=== PATIENT | female | born 1955 | race Caucasian/White ===

== ENCOUNTER 2020-10-26 16:46 | Inpatient (IN) ==
--- NOTE | 2020-10-26 17:00 | Emergency Department Note ---
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 More than 16 hours since last known well per the patient's report and EMS report. Patient is unclear the exact timing of this yesterday evening but states she started to have increased weakness of her left leg and normally this is not weak. 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 Patient denies any headache or trauma or falls. Patient denies any chest pain, recent fever, or infectious symptoms. Patient denies any nausea or vomiting. Patient states her right arm and leg are functioning normally. EMS states there was concerns worsening left-sided facial droop as well. Patient states that she was able to eat okay today and Occupational Therapy came this afternoon and she thinks he may have overdone things and made things a bit worse. Patient is on baby aspirin but denies other blood thinners. Patient's daughter later arrives and states patient actually been having some hallucinations yesterday and today and not talking sense at times. Reports that the patient had some worsened weakness of her left leg last night and over this afternoon developed a bit of a left facial droop which was new. No trauma reported. No fevers reported. Did receive PT and OT this afternoon but the patient just seems different and thus EMS was called. REVIEW OF SYSTEMS: A total of 10 review of systems was obtained and negative except as stated above in the HPI. PAST MEDICAL HISTORY: As noted above MEDICATIONS: Reviewed home medication list SOCIAL HISTORY: Former smoker, lives at home at the [facility] PHYSICAL EXAM: GENERAL: alert and oriented in no acute distress on stretcher Head: normocephalic and atraumatic EYES: No injection, discharge or icterus. PERRL, EOMI. NECK: Trachea midline. Supple. ENT: Mucous membranes pink and moist. Pharynx without erythema or exudate. LUNGS: Airway patent. No retractions. Breath sounds clear with good air entry bilaterally. HEART: Regular rate and rhythm. No chest wall tenderness ABDOMEN: Soft and non-tender, without guarding or rebound. SKIN: Acyanotic, warm, dry, without rashes EXTREMITIES: Without swelling, tenderness or deformity NEUROLOGICAL: No aphasia. Left facial droop without significant slurred speech. Sensation to gross touch normal in extremities and face. Patient has full baseline paralysis of the left upper extremity. Weakness left greater than right but able to lift off the bed of the lower extremities. EK bpm normal sinus rhythm. No PVC or PAC. No acute ST segment elevation or depression appreciated. Normal QTC. CONTINUOUS CARDIAC MONITORING: was ordered and showed a heart rate of 82 bpm in normal sinus rhythm Patient's laboratory studies and imaging reviewed. Differential includes Infection, dehydration, metabolic abnormality, hypo/hyperglycemia, electrolyte disturbance, anemia, hypoxia, cardiac sources, intracerebral event, toxicologic, neurologic, as well as other pathologies. IMPRESSION/MEDICAL DECISION MAKING: Patient presents via EMS reports of some new left weakness of the leg and some left facial droop starting last night initially. No trauma reported. Patient is alert and answers questions as not necessarily the best historian. Some reported increased weakness of the left leg is noted as well as a left facial droop. Patient initially stated this all started last night (thus not made a stroke alert) but the daughter states the facial droop started several hours prior to arrival when EMS was called. I long discussion with him regarding TPA however given the questionable history and onset timing in shared decision- making do not feel she is a candidate for consideration of TPA at this time based on the risks and benefits. CT of the head without acute intracranial bleed. She does have large stroke deficit from previous injury. Depakote level is therapeutic which she reportedly takes for migraines. Covid testing was negative. No significant leukocytosis or anemia is noted on blood work. Basic electrolytes without significant abnormality. Troponin is not elevated. Urinalysis is pending to see if possible infection is relating to her hallucinations and symptoms today causing possible recrudescence versus new stroke. CT and CTA of the head and neck with near complete occlusion of the right internal carotid artery likely chronic with some diminished caliber of the right MCA. Chest x-ray is clear although the patient seems to be borderline on room air and has been placed on 2 L. Discussed with patient and daughter at bedside findings of testing and imaging. Believe given the patient's change in neurological deficit is need additional evaluation here as an inpatient and they agree. Could possibly infectious versus stroke as cause of symptoms. Again discussed with patient and her daughter risks associated with TPA and they agree they do not want to pursue this at this time which I believe is reasonable given the mixed picture here. Discussed with the hospitalist for further inpatient evaluation. DIAGNOSIS: Left-sided weakness, left facial droop, hallucinations DISPOSITION: Hospitalist will evaluate Patient was agreeable with this plan. Past Med/Surg History Social History Smoking Status: Unknown if ever smoked Hx Alcohol Use: No Hx Substance Use: No Beliefs That Will Affect Care: None Current Living Situation: Family Other Information That Helps Us Care for You: No Feels Safe at Home: Yes Safety Concerns: Feels Safe At This Time Allergies Allergies Allergy/AdvReac Type Severity Reaction Status Date / Time No Known Allergies Allergy Unverified 10/26/20 18:14 Home Meds Home Medications Medication Instructions Recorded Confirmed albuterol sulfate [Ventolin HFA] 2 puff INHALATION 6XD PRN 10/26/20 10/26/20 aspirin [Aspir-Low] 81 mg PO DAILY 10/26/20 10/26/20 atorvastatin 40 mg PO QPM 10/26/20 10/26/20 divalproex [Depakote] 1,000 mg PO .10PM 10/26/20 10/26/20 duloxetine 30 mg PO .9PM 10/26/20 10/26/20 famotidine 20 mg PO .9AM 10/26/20 10/26/20 gabapentin 300 mg PO TID 10/26/20 10/26/20 lisinopril-hydrochlorothiazide 1 tab PO QAM 10/26/20 10/26/20 nystatin [Nyamyc] 1 applic TOPICAL TID 10/26/20 10/26/20 omeprazole 40 mg PO QAM 10/26/20 10/26/20 ondansetron HCl 4 mg PO Q8H PRN 10/26/20 10/26/20 Results & Data (ED) Vital Signs Vital Signs - 24 hr 10/26/20 17:06 10/26/20 17:39 10/26/20 18:33 Temperature 36.8 C Temperature Source Oral Pulse Rate 75 Pulse Rate [Right Finger] 75 96 H Respiratory Rate 15 15 16 Respiratory Effort / Characteristics Non-Labored Respiratory Depth Normal Blood Pressure 111/85 Blood Pressure [Right Arm] 119/82 107/66 Blood Pressure Mean 93 Blood Pressure Mean [Right Arm] 94 79 Pulse Oximetry 93 96 95 Oxygen Delivery Method Room Air Room Air Nasal Cannula Oxygen Flow Rate 2 Sepsis Recent Fever Within 48 Hours No Sepsis New/Unexplained Change in Mental Status N/A Sepsis Action Taken by Nursing No Action Required 10/26/20 20:05 Temperature Temperature Source Pulse Rate Pulse Rate [Right Finger] 62 Respiratory Rate 15 Respiratory Effort / Characteristics Respiratory Depth Blood Pressure Blood Pressure [Right Arm] 126/66 Blood Pressure Mean Blood Pressure Mean [Right Arm] 86 Pulse Oximetry 95 Oxygen Delivery Method Oxygen Flow Rate Sepsis Recent Fever Within 48 Hours Sepsis New/Unexplained Change in Mental Status Sepsis Action Taken by Nursing Laboratory Data Result diagrams: 10/26/20 16:57 10/26/20 16:57 Lab Results 10/26/20 10/26/20 10/26/20 Range/Units 16:57 16:57 16:57 WBC 9.48 (4.8-10.8) K/uL RBC 4.22 (4.2-5.4) M/uL Hgb 13.4 (12.0-16.0) g/dL Hct 40.4 (37-47) % MCV 95.7 (80-100) fL MCH 31.8 (25-34) pg MCHC 33.2 (32-36) g/dL RDW Std Deviation 50.2 H (36.4-46.3) fL RDW Coeff of Parviz 14.2 (11.5-14.5) % Plt Count 185 (130-400) K/uL MPV 10.5 H (7.4-10.4) fL Immature Gran % (Auto) 0.2 % Neut % (Auto) 63.3 % Lymph % (Auto) 20.3 % [place] % (Auto) 11.0 % Eos % (Auto) 4.9 % Baso % (Auto) 0.3 % Neut # (Auto) 6.01 (1.4-6.5) K/uL Lymph # (Auto) 1.92 (1.2-3.4) K/uL [place] # (Auto) 1.04 H (0.11-0.59) K/uL Eos # (Auto) 0.46 (0-0.5) K/uL Baso # (Auto) 0.03 (0-0.2) K/uL Immature Gran # (Auto) 0.02 (0.00-0.02) K/uL PT 10.5 (9.0-12.0) Seconds INR 1.0 (0.9-1.1) APTT 24.5 (21.0-31.0) Seconds PTT Ratio 0.9 Sodium 136 (136-145) mmol/L Potassium 4.0 (3.5-5.1) mmol/L Chloride 102 (98-107) mmol/L Carbon Dioxide 29 (21-32) mmol/L Anion Gap 6.0 (3-11) BUN 23 H (7-18) mg/dl Creatinine 1.09 (0.6-1.2) mg/dl Est Cr Clr Drug Dosing 54.7 ml/min Est GFR ( Amer) 60.8 Est GFR (Non-Af Amer) 52.5 BUN/Creatinine Ratio 21.2 H (10-20) Glucose 103 H (70-99) mg/dl Calcium 9.2 (8.5-10.1) mg/dl Magnesium 2.0 (1.8-2.4) mg/dl Total Bilirubin 0.4 (0.2-1) mg/dl AST 35 (15-37) U/L ALT 24 (12-78) U/L Alkaline Phosphatase 79 (45-117) U/L Troponin I < 0.015 (0-0.045) ng/ml Total Protein 8.3 H (6.4-8.2) gm/dl Albumin 3.2 L (3.4-5.0) gm/dl Globulin 5.1 H (2.5-4.0) gm/dl Albumin/Globulin Ratio 0.6 L (0.9-2) Valproic Acid (50-100) mcg/ml COVID-19 Eval Order Hepatitis C Ab Screen (Neg) SARS-CoV-2, RNA, NAAT (NEGATIVE) 10/26/20 10/26/20 10/26/20 Range/Units 16:57 16:57 17:37 WBC (4.8-10.8) K/uL RBC (4.2-5.4) M/uL Hgb (12.0-16.0) g/dL Hct (37-47) % MCV (80-100) fL MCH (25-34) pg MCHC (32-36) g/dL RDW Std Deviation (36.4-46.3) fL RDW Coeff of Parviz (11.5-14.5) % Plt Count (130-400) K/uL MPV (7.4-10.4) fL Immature Gran % (Auto) % Neut % (Auto) % Lymph % (Auto) % [place] % (Auto) % Eos % (Auto) % Baso % (Auto) % Neut # (Auto) (1.4-6.5) K/uL Lymph # (Auto) (1.2-3.4) K/uL [place] # (Auto) (0.11-0.59) K/uL Eos # (Auto) (0-0.5) K/uL Baso # (Auto) (0-0.2) K/uL Immature Gran # (Auto) (0.00-0.02) K/uL PT (9.0-12.0) Seconds INR (0.9-1.1) APTT (21.0-31.0) Seconds PTT Ratio Sodium (136-145) mmol/L Potassium (3.5-5.1) mmol/L Chloride (98-107) mmol/L Carbon Dioxide (21-32) mmol/L Anion Gap (3-11) BUN (7-18) mg/dl Creatinine (0.6-1.2) mg/dl Est Cr Clr Drug Dosing ml/min Est GFR ( Amer) Est GFR (Non-Af Amer) BUN/Creatinine Ratio (10-20) Glucose (70-99) mg/dl Calcium (8.5-10.1) mg/dl Magnesium (1.8-2.4) mg/dl Total Bilirubin (0.2-1) mg/dl AST (15-37) U/L ALT (12-78) U/L Alkaline Phosphatase (45-117) U/L Troponin I (0-0.045) ng/ml Total Protein (6.4-8.2) gm/dl Albumin (3.4-5.0) gm/dl Globulin (2.5-4.0) gm/dl Albumin/Globulin Ratio (0.9-2) Valproic Acid 81 (50-100) mcg/ml COVID-19 Eval [email or web address] C Ab Screen Pos A (Neg) SARS-CoV-2, RNA, NAAT (NEGATIVE) 10/26/20 Range/Units 17:37 WBC (4.8-10.8) K/uL RBC (4.2-5.4) M/uL Hgb (12.0-16.0) g/dL Hct (37-47) % MCV (80-100) fL MCH (25-34) pg MCHC (32-36) g/dL RDW Std Deviation (36.4-46.3) fL RDW Coeff of Parviz (11.5-14.5) % Plt Count (130-400) K/uL MPV (7.4-10.4) fL Immature Gran % (Auto) % Neut % (Auto) % Lymph % (Auto) % [place] % (Auto) % Eos % (Auto) % Baso % (Auto) % Neut # (Auto) (1.4-6.5) K/uL Lymph # (Auto) (1.2-3.4) K/uL [place] # (Auto) (0.11-0.59) K/uL Eos # (Auto) (0-0.5) K/uL Baso # (Auto) (0-0.2) K/uL Immature Gran # (Auto) (0.00-0.02) K/uL PT (9.0-12.0) Seconds INR (0.9-1.1) APTT (21.0-31.0) Seconds PTT Ratio Sodium (136-145) mmol/L Potassium (3.5-5.1) mmol/L Chloride (98-107) mmol/L Carbon Dioxide (21-32) mmol/L Anion Gap (3-11) BUN (7-18) mg/dl Creatinine (0.6-1.2) mg/dl Est Cr Clr Drug Dosing ml/min Est GFR ( Amer) Est GFR (Non-Af Amer) BUN/Creatinine Ratio (10-20) Glucose (70-99) mg/dl Calcium (8.5-10.1) mg/dl Magnesium (1.8-2.4) mg/dl Total Bilirubin (0.2-1) mg/dl AST (15-37) U/L ALT (12-78) U/L Alkaline Phosphatase (45-117) U/L Troponin I (0-0.045) ng/ml Total Protein (6.4-8.2) gm/dl Albumin (3.4-5.0) gm/dl Globulin (2.5-4.0) gm/dl Albumin/Globulin Ratio (0.9-2) Valproic Acid (50-100) mcg/ml COVID-19 Eval Order Hepatitis C Ab Screen (Neg) SARS-CoV-2, RNA, NAAT NEGATIVE (NEGATIVE) Administered Medications Atorvastatin Calcium (Atorvastatin 40 Mg Tab) 40 mg PO QPM SARAH Stop: 11/25/20 21:59 Last Admin: 10/26/20 22:35 Dose: 40 mg Documented by: [id number] Divalproex Sodium (Divalproex Delay Release 500 Mg Tab) 1,000 mg PO DAILY@2200 SARAH Stop: 11/25/20 21:59 Last Admin: 10/26/20 22:36 Dose: 1,000 mg Documented by: [id number] Gabapentin (Gabapentin 300 Mg Cap) 300 mg PO TID SARAH Stop: 11/25/20 21:59 Last Admin: 10/26/20 22:35 Dose: 300 mg Documented by: [id number] Sodium Chloride (Nss 1000ml) 1,000 mls @ 80 mls/hr IV .[id number] SARAH Stop: 11/25/20 21:15 Last Admin: 10/26/20 21:58 Dose: 80 mls/hr Documented by: [id number] Nystatin (Nystatin Powder 15gm Btl) 1 appln EXT TID SARAH Stop: 11/25/20 21:59 Last Admin: 10/26/20 22:34 Dose: 1 appln Documented by: [id number] Discontinued Medications Clopidogrel Bisulfate (Clopidogrel Bisulfate 75 Mg Tab) 75 mg PO NOW ONE Stop: 10/26/20 20:17 Last Admin: 10/26/20 20:37 Dose: 75 mg Documented by: [id number] Ioversol (Optiray 320 125ml) 120 ml IV ONCE ONE Stop: 10/26/20 18:13 Last Admin: 10/26/20 18:12 Dose: 120 ml Documented by: [id number] Discharge Plan Visit Data Chief Complaint: Stroke/CVA Symptoms Stated Complaint: STROKE SX ED Provider: Kale Coates Discharge Problem: Acute left-sided weakness, Facial droop, Hallucinations Patient Disposition: Admitted As Inpatient Discharge Instructions Interventions: ED Discharge Assessment Last Done: 10/26/20 20:42
[2020-10-26 17:11] LABS: Basophils # (auto) 0.03 K/uL (0-0.2); Basophils % (auto) 0.3 %; Eosinophils # (auto) 0.46 K/uL (0-0.5); Eosinophils % (auto) 4.9 %; Hematocrit (blood only) 40.4 % (37-47); Hemoglobin 13.4 g/dL (12.0-16.0); Immature Granulocytes # (auto) 0.02 K/uL (0.00-0.02); Immature Granulocytes % (auto) 0.2 %; Lymphocytes # (auto) 1.92 K/uL (1.2-3.4); Lymphocytes % (auto) 20.3 %; Mean Corpuscular Hemoglobin 31.8 pg (25-34); Mean Corpuscular Hgb Conc 33.2 g/dL (32-36); Mean Corpuscular Volume 95.7 fL (80-100); Mean Platelet Volume 10.5 fL (7.4-10.4); Monocytes # (auto) 1.04 K/uL (0.11-0.59); Neutrophils # (auto) 6.01 K/uL (1.4-6.5); Neutrophils % (auto) 63.3 %; Platelet Count 185 K/uL (130-400); RDW Coefficient of Variation 14.2 % (11.5-14.5); RDW Standard Deviation 50.2 fL (36.4-46.3); Red Blood Count 4.22 M/uL (4.2-5.4); White Blood Count 9.48 K/uL (4.8-10.8)
[2020-10-26 17:24] LABS: Partial Thromboplastin Ratio 0.9; Partial Thromboplastin Time 24.5 Seconds (21.0-31.0); Prothrombin Time 10.5 Seconds (9.0-12.0)
--- NOTE | 2020-10-26 17:28 | XRay Report ---
SINGLE VIEW CHEST CLINICAL HISTORY: Strokelike symptoms. FINDINGS: An AP, portable, upright chest radiograph is obtained. No prior studies are available for c omparison at the time of dictation. The examination is degraded by portable technique and patient rot ation. The cardiomediastinal silhouette is unremarkable noting atherosclerotic calcification of the thoracic aorta. There is mild bibasilar scarring/atelectasis. No airspace consolidation or large pleu ral effusion is identified. No pneumothorax is seen. The skeletal structures are osteopenic. The bony thorax is grossly intact. There is atherosclerotic calcification of the carotid bulbs. IMPRESSION: No active disease in the chest. ACT 112: Negative or not required by law. Electronically signed by: Carrillo Gomez M.D. 10/26/2020 5:26 PM
[2020-10-26 17:37] LABS: Alanine Aminotransferase 24 U/L (12-78); Albumin Level 3.2 gm/dl (3.4-5.0); Aspartate Aminotransferase 35 U/L (15-37); BUN Creatinine Ratio 21.2 (10-20); Blood Urea Nitrogen 23 mg/dl (7-18); Calcium 9.2 mg/dl (8.5-10.1); Carbon Dioxide 29 mmol/L (21-32); Chloride 102 mmol/L (98-107); Creatinine Clr Calc Pharmacy 54.7 ml/min; Est GFR (African American) 60.8; Est GFR (Non-African American) 52.5; Glucose 103 mg/dl (70-99); Sodium 136 mmol/L (136-145)
[2020-10-26 17:42] LABS: Albumin Globulin Ratio 0.6 (0.9-2); Alkaline Phosphatase 79 U/L (45-117); Bilirubin,Total 0.4 mg/dl (0.2-1); Globulin 5.1 gm/dl (2.5-4.0); Total Protein 8.3 gm/dl (6.4-8.2); Troponin I < 0.015 ng/ml (0-0.045)
[2020-10-26] MEDS ORDERED: OPTIRAY 320 125ml IV ONE (18:12)
--- NOTE | 2020-10-26 18:17 | CT Scan Report ---
UNENHANCED CT OF THE BRAIN; CT ANGIOGRAM OF THE BRAIN; CT ANGIOGRAM OF THE NECK CLINICAL HISTORY: Strokelike symptoms. Left lower extremity weakness. COMPARISON STUDY: No priors. TECHNIQUE: Unenhanced axial CT scan of the brain is performed. Subsequently, following the IV adminis tration of 120 of Optiray 320, CT angiogram of the head and neck was performed from the aortic arch t o the vertex. Images are reviewed in the axial, sagittal, and coronal planes. 3-D MIPS images are cre ated and assessed. IV contrast was administered without complication. All measurements were calculate d based on NASCET criteria. A dose lowering technique was utilized adhering to the principles of ALA RA. CT DOSE: 1058.36 mGy.cm FINDINGS: Brain parenchyma: Encephalomalacia throughout the right MCA territory is consistent with a remote inf arct. There is mild microangiopathic disease. There is no hemorrhage, mass effect, or evidence of acu te territorial ischemia by CT criteria. There is no evidence of enhancing mass lesion on the angiogra m phase images. Wallerian degeneration is noted in the right aspect of the gene. The ventricles, sulc i, and cisterns are prominent secondary to involutional change. A chronic lacunar infarct is noted in the right aspect of the gene. Moreno-white matter differentiation is preserved. No extra-axial fluid c ollection is seen. Thoracic aorta: There is atherosclerotic calcification of the thoracic aorta. Visualized portions of the thoracic aorta are normal in caliber. The aortic arch demonstrates standard 3-vessel anatomy. Right carotid arterial system: The right common carotid artery is widely patent. There is high-grade stenosis at the origin of the right external carotid artery. The remainder of the right external palafox tid artery is widely patent. Advanced atherosclerotic plaque is seen in the right carotid bulb and th roughout the right internal carotid artery. There is a long segment of high-grade stenosis with near- complete occlusion/trace flow seen at the origin of the right internal carotid artery. This extends 1 .3 cm in length. The mid to distal right internal carotid artery is diminutive but patent. Left carotid arterial system: The left common carotid artery is widely patent, as are the left athletic training internship al and external carotid arteries. Calcified plaque is noted in the carotid bulb. Vertebral arteries: The vertebral arteries are patent bilaterally noting left-sided dominance. Subclavian arteries: Widely patent bilaterally. Intracranial vasculature: There is advanced atherosclerotic calcification an irregularity of the cave rnous carotid arteries. There is attenuated flow within the right internal carotid artery at the skul l base. Vessel remains patent. The left internal carotid artery is widely patent at the skull base, a s are the anterior cerebral arteries and the left middle cerebral artery. The right middle cerebral a rtery is patent, and slightly diminutive as compared to the left. The vertebrobasilar system and post erior cerebral arteries are widely patent. The left vertebral artery is dominant. There is no aneurys m or focal vessel cut off seen throughout the intracranial circulation. Jugular veins: Patent bilaterally. Dural sinuses: Patent. Lung apices: Emphysematous change is noted at the lung apices. Soft tissues: The visualized pharyngeal soft tissues are normal in appearance noting angiographic pha se technique. The oropharyngeal airway appears widely patent. A 6 mm low-attenuation nodule is noted in the left lobe of the thyroid. The salivary glands are normal in appearance. No cervical lymphadeno stella is seen. Skeletal structures: The skeletal structures are osteopenic. The calvarium appears intact. The cervic al spine is maintained noting mild multilevel spondylosis. No lytic or blastic lesion is seen. Orbits: The bony orbits are intact. Orbital contents are normal as visualized. Sinuses and mastoids: There is mild to moderate mucosal thickening within the right maxillary antrum. Trace mucosal thickening is seen in the left maxillary antrum. The remaining paranasal sinuses are c lear. There are small mastoid effusions. IMPRESSION: 1. There is no hemorrhage, mass effect, or evidence of acute territorial ischemia by CT criteria. 2. Encephalomalacia throughout the right MCA territory is consistent with a remote infarct. 3. There is a 1.3 cm segment of near-complete occlusion at the origin of the right internal carotid a rtery with only trace flow. 4. The mid to distal right internal carotid artery in the neck as well as the right internal carotid artery at the skull base is diminutive/attenuated but patent. This is likely chronic. 5. The left internal carotid artery and the vertebral arteries are patent. 6. The intracranial vessels are patent. The right MCA is slightly diminished in caliber as compared t o left. 7. Emphysema. 8. Additional findings as above. ACT 112: Negative or not required by law. Electronically signed by: Carrillo Gomez M.D. 10/26/2020 6:16 PM
[2020-10-26] MEDS ORDERED: CLOPIDOGREL BISULFATE 75 MG TAB PO ONE (20:16)
[2020-10-26] MEDS ORDERED: POLYETHYLENE (MIRALAX) 17 GM PACK PO PRN (21:16)
[2020-10-26] MEDS ORDERED: ONDANSETRON INJ 2 MG/ML 2 ML VIAL IV PRN (21:16)
[2020-10-26] MEDS ORDERED: ALBUTEROL HFA 8 GM INHALER INH PRN (21:16)
[2020-10-26] MEDS ORDERED: NITROGLYCERIN SL 0.4 MG/TAB TAB SL PRN (21:16)
[2020-10-26] MEDS ORDERED: PHARMACIST DISCHARGE MED REC CONSULT PRN (21:16)
[2020-10-26] MEDS ORDERED: ONDANSETRON 4 MG OD TAB PO PRN (21:26)
[2020-10-26] MEDS: SODIUM CHLORIDE 0.9% 1000ML 1,000 ML IV SCH (21:58)
[2020-10-26] MEDS: NYSTATIN POWDER 15GM BTL EXT SCH (22:34)
[2020-10-26] MEDS: ATORVASTATIN 40 MG TAB PO SCH (22:35)
[2020-10-26] MEDS: GABAPENTIN 300 MG CAP PO SCH (22:35)
[2020-10-26] MEDS: DIVALPROEX DELAY RELEASE 500 MG TAB PO SCH (22:36)
[2020-10-26] MEDS ORDERED: LORazepam 0.5 MG/1 ML VIAL IV STA (23:22)
--- NOTE | 2020-10-27 00:45 | History and Physical Report ---
DATE OF ADMISSION: 10/26/2020 CHIEF COMPLAINT: Stroke-like symptoms. HISTORY OF PRESENT ILLNESS: A 65-year-old female with past medical history significant for hyperlipidemia, prediabetes, COPD, hypertension, GERD, depression, history of CVA in January of 2020 with left-sided weakness and bedbound since then, nonambulatory status. Currently moved close to stay with her daughter, daughter helps her. Was brought in because of stroke-like symptoms. Since yesterday night, the patient has felt a little bit more weakness in her left leg than usual and also some mild left-sided facial droop. As per daughter, she was also hallucinating last night. That is the reason she was brought in here. Imaging studies, Ct head and CTA of the head and neck were done in the ER, no acute findings seen. The patient is alert and oriented. Speech is clear. Questionable mild facial droop. Answering questions appropriately and obeys simple commands. Can move a little bit, her left lower extremity, but cannot move her left upper extremity, that is from previous stroke. As per daughter, last night she also was choking on the food. Generally, she eats okay. Has chronic migraine headaches has headache now about 8/10 in severity . Always has blurred visions. No fever, no chills. Has some nausea, no vomiting, no abdominal pain, no diarrhea or constipation. She also complains of burning micturition. No chest pain, no shortness of breath, no abdominal pain. Currently, hemodynamics are stable. ALLERGIES: No known drug allergies. PAST MEDICAL HISTORY: As mentioned above. PAST SURGICAL HISTORY: Lumbar diskectomy. MEDICATIONS: The patient is on albuterol 2 puffs p.r.n., aspirin 81 mg p.o. daily, atorvastatin 40 mg p.o. p.m., Depakote 1000 mg p.o. p.m., duloxetine 30 mg p.o. p.m., famotidine 20 mg p.o. a.m., gabapentin 300 mg p.o. daily, lisinopril and hydrochlorothiazide 20/25 mg 1 tablet p.o. daily, nystatin topical t.i.d., omeprazole 40 mg p.o. daily, Zofran 4 mg p.o. q. 8 hours p.r.n. FAMILY HISTORY: Significant for no family history on file. SOCIAL HISTORY: Former smoker. Alcohol rarely. No drug use. REVIEW OF SYSTEMS: As per HPI. Rest of the review of systems negative. PHYSICAL EXAMINATION: GENERAL: The patient is alert and oriented, not in acute distress. VITAL SIGNS: Temperature 36.8, pulse 63, respiratory rate 16, blood pressure 110/64, oxygen 96% on 2 L. HEENT: Pupils equal, round, and reactive to light. Oral mucosa moist. Tongue midline. No obvious facial droop seen. NECK: No JVD, no neck masses. CARDIOVASCULAR: S1, S2 heard. Regular rate and rhythm, no murmur, no gallop. RESPIRATORY SYSTEM: Normal AP diameter. No accessory muscle use. No wheezing, no crackles. ABDOMEN: Soft, bowel sounds present, nontender. No distention. CENTRAL NERVOUS SYSTEM: Alert and oriented. Obeys simple commands. Power 5/5 in right extremity, power 1/5 and left lower extremity and 0/5 in left upper extremity. Position sense intact. EXTREMITIES: No edema, no erythema. LABORATORY DATA: WBC 9.4, hemoglobin 13.4, hematocrit 40.4, platelets 185. PT 10.5, INR 1, APTT 24.5. Sodium 136, potassium 4, chloride 102, bicarbonate 29, BUN 23, creatinine 1.09, serum glucose 103, calcium 9.2, magnesium 2, total bilirubin 0.4, AST 35, ALT 24, alkaline phosphatase 110, troponin I less than 0.015. Valproic acid 81. SARS-CoV-2 RNA negative. IMAGING DATA: Chest x-ray, no active disease in the chest. CT of the head, no hemorrhage or mass effect. Encephalomalacia throughout the right MCA territory consistent with remote infarct. A 1.3 cm segment of near complete occlusion of the origin of the right internal carotid artery with only trace flow. Mid to distal right internal carotid artery in the neck as well as right internal carotid artery at the skull base, diminutive. Left carotid artery and the vertebral arteries are patent. Intracranial vessels are patent. The right MCA is slightly diminished in caliber as compared to the left . Chest x-ray, no active disease in the chest. EKG: Normal sinus rhythm at a rate of 69, no previous ECGs available. ASSESSMENT AND PLAN: This is a 65-year-old female who presents with stroke-like symptoms. 1. Stroke-like symptoms: History of right MCA stroke with left-sided weakness since January, bedbound as per the daughter since then. Since last night, she is having more weakness in the left lower extremity and has some questionable facial droop and hallucinations and some dysphagia. Initial workup reveals no acute findings. We will admit her to tele floor. We will do stroke workup with MRI scans, echocardiogram, speech evaluation. Neurology consulted. Also vascular surgery consult for right carotid artery stenosis. We will keep n.p.o. except medications and gentle fluids and closely monitor in the tele floor.Patient is already on aspirin. We will continue aspirin, and also start on Plavix for now and continue her home statin. Follow the lipid profile and HbA1c levels. 2. Hypertension: We will hold her lisinopril and hydrochlorothiazide. We will allow for permissive hypertension until MRI scan is back. Will monitor the blood pressure. 3. Gastroesophageal reflux disease: Continue omeprazole. 4. Hyperlipidemia: Continue statin. 5. History of depression: Continue her duloxetine. 6. History of migraines: Continue her Depakote. 7. Chronic obstructive pulmonary disease: Currently stable. Continue her inhaler p.r.n. 8. History of prediabetes: Follow HbA1c levels, follow the blood sugars. 9. Burning micturition. Follow UA. 10. Deep venous thrombosis prophylaxis: Sequential compression devices for now. 11. Disposition: Admit to tele floor. Expect to discharge back home if stable. Social service to help with discharge planning. Level 1 full code as per the discussion with the patient. PAL
[2020-10-27] MEDS: LIDOCAINE 5% 1 PATCH TD SCH ×2 (01:11→20:30)
[2020-10-27 07:56] LABS: BUN Creatinine Ratio 19.1 (10-20); Calcium 9.6 mg/dl (8.5-10.1); Creatinine Clr Calc Pharmacy 65.5 ml/min; Est GFR (African American) 75.7; Est GFR (Non-African American) 65.3; Potassium 4.1 mmol/L (3.5-5.1)
[2020-10-27] MEDS: FAMOTIDINE 20 MG TAB PO SCH (07:56)
[2020-10-27] MEDS: CLOPIDOGREL BISULFATE 75 MG TAB PO SCH (07:56)
[2020-10-27] MEDS: GABAPENTIN 300 MG CAP PO SCH ×2 (07:56→14:33)
[2020-10-27] MEDS: DULoxetine HCL 30 MG CAP PO SCH (07:56)
[2020-10-27] MEDS: PANTOprazole 40 MG TAB PO SCH (07:56)
[2020-10-27] MEDS: ASPIRIN 81 MG ECTAB PO SCH (07:57)
[2020-10-27] MEDS: NYSTATIN POWDER 15GM BTL EXT SCH ×3 (07:58→20:31)
--- NOTE | 2020-10-27 08:03 | Magnetic Resonance Report ---
MRI OF THE BRAIN WITHOUT CONTRAST CLINICAL HISTORY: Stroke-like symptoms. COMPARISON STUDY: Head CT and CTA of the head October 26, 2020. TECHNIQUE: Utilizing a 1.5 Emi magnet and dedicated coil, multiplanar, multiecho imaging of the bra in was performed without IV contrast. FINDINGS: There are no foci of restricted diffusion to suggest acute infarct. No acute intracranial h emorrhage, midline shift or mass effect is present. Note is made of multifocal encephalomalacia withi n the right middle cerebral artery distribution consistent with old infarct. An adjacent T2 hyperinte nsity is noted. These findings are chronic. Associated wallerian degeneration and mild asymmetric dil atation of the right lateral ventricle is noted. Basal cisterns are patent. There are no extra-axial collections no intracranial masses identified on this unenhanced examination. No foci of susceptibili ty artifact are identified on the gradient echo sequence. Calvarial signal is normal. There is mild t o moderate mucosal thickening of the right maxillary sinus. There is trace fluid within the bilateral mastoid air cells. IMPRESSION: 1. No acute intracranial findings. 2. Old right middle cerebral artery territory infarcts. ACT 112: Negative or not required by law. Electronically signed by: Barak Clark M.D. 10/27/2020 8:01 AM
[2020-10-27 08:24] LABS: Basophils # (auto) 0.04 K/uL (0-0.2); Basophils % (auto) 0.6 %; Eosinophils # (auto) 0.57 K/uL (0-0.5); Eosinophils % (auto) 8.1 %; Hematocrit (blood only) 44.1 % (37-47); Hemoglobin 14.4 g/dL (12.0-16.0); Immature Granulocytes # (auto) 0.01 K/uL (0.00-0.02); Immature Granulocytes % (auto) 0.1 %; Lymphocytes # (auto) 2.03 K/uL (1.2-3.4); Lymphocytes % (auto) 28.7 %; Mean Corpuscular Hemoglobin 31.6 pg (25-34); Mean Corpuscular Hgb Conc 32.7 g/dL (32-36); Mean Corpuscular Volume 96.9 fL (80-100); Mean Platelet Volume 10.5 fL (7.4-10.4); Monocytes # (auto) 0.99 K/uL (0.11-0.59); Neutrophils # (auto) 3.44 K/uL (1.4-6.5); Neutrophils % (auto) 48.5 %; Platelet Count 146 K/uL (130-400); RDW Coefficient of Variation 14.2 % (11.5-14.5); RDW Standard Deviation 50.8 fL (36.4-46.3); Red Blood Count 4.55 M/uL (4.2-5.4); White Blood Count 7.08 K/uL (4.8-10.8)
[2020-10-27] MEDS ORDERED: LISINOPRIL/HCTZ 20/25MG 1 TAB PO SCH (09:00)
[2020-10-27 10:03] LABS: Estimated Average Glucose 105 mg/dl; Hemoglobin A1C 5.3 % (4.5-5.6)
[2020-10-27] MEDS: SODIUM CHLORIDE 0.9% 1000ML 1,000 ML IV SCH (11:30)
[2020-10-27 12:54] LABS: Appearance Urine Clear (Clear); Bacteria Urine Automated 4+ (Negative); Bilirubin Urine Negative (Negative); Blood Urine Negative (Negative); Cast Urine Automated 0 /lpf (0-5); Color Urine Yellow; Glucose Urine UA Negative (Negative); Ketones Urine Negative (Negative); Leukocyte Esterase Urine 1+ (Negative); Nitrite Urine Positive (Negative); Protein Urine Negative (Negative); Specific Gravity Urine 1.022 (1.000-1.030); Urobilinogen Urine Negative (Negative); pH Urine 5.5 (4.5-7.5)
--- NOTE | 2020-10-27 13:13 | Hospitalist Progress Note ---
Date of Service October 27, 2020 Assessment & Plan (1) Stroke-like symptoms: Discussed with patient's daughter. She reports that patient noted to have increased left-sided weakness with worsening left facial droop arcelia night. Stated that her baseline patient is able to move the left leg a bit but worsened that night. CT head show encephalomalacia consistent with old stroke and no acute abnormalities MRI brain did not show any acute infarct CT angio head and neck does show near occlusion of the right ICA. This is likely chronic. Vascular surgeons evaluation appreciated Continue aspirin, Plavix and atorvastatin for now Appreciate neurology evaluation Daughter also reports that patient has been more forgetful Patient has had increased drowsiness since starting Cymbalta and gabapentin increased after last PCP visit on 10/05/2020. This was confirmed on [facility] review. We will continue Cymbalta for now and gabapentin reduced to previous dose of 100 mg 3 times daily Daughter also reported some choking episodes in the past to solid foods. Speech evaluation done and minced and moist diet recommended. (2) Hypertension: Continue to hold antihypertensives for now (3) GERD (gastroesophageal reflux disease): Continue omeprazole (4) History of depression: (5) Migraines: Continue Depakote and duloxetine. (6) DVT prophylaxis: Lovenox acute Admission and Anticipated Discharge Date Admission Date: October 26, 2020 Subjective Patient seen and examined. Patient was quite drowsy during evaluation, arousable but quickly falls back to sleep. According to RN, patient was wide awake, alert and oriented to person/place/time earlier but patient's daughter reports that patient usually sleeps quite deeply. Limited review of system due to drowsiness. Was able to follow simple commands such as squeeze my hands and open mouth Physical Exam Constitutional: + well hydrated; no acute distress Drowsy but arousable Eyes: PERRL, conjunctivae normal, anicteric sclerae ENMT: external ear and nose normal, oropharynx normal Respiratory: normal respiratory effort, lungs clear to auscultation Cardiovascular: Rate/Rhythm: regular rate and regular rhythm Heart Sounds: normal S1 and normal S2 Gastrointestinal (Abdomen): normal bowel sounds, soft, nontender, no hepa tosplenomegaly Musculoskeletal: No pedal edema Neurologic: Drowsy but arousable. Quickly falls back to sleep Follows simple commands such as open mouth, squeeze hand Paralysis of left UE with increased tone on passive ROM Limited assessment due to drowsiness Psychiatric: Somnolent Results & Data Results & Data ([facility]) Vital Signs (Past 12 Hours) Vital Signs Temp Pulse Pulse Resp BP Pulse Ox 10/27/20 11:30 36.8 C 55 L 18 93/47 L 96 10/27/20 08:00 55 L 10/27/20 07:38 36.2 C L 64 16 114/83 97 10/27/20 03:52 36.6 C 66 18 105/61 97 10/27/20 02:32 36.4 C L 60 15 99/62 L 96 10/27/20 02:07 63 Laboratory Results Laboratory Results - last 24 hr 10/26/20 10/26/20 10/26/20 16:57 16:57 16:57 WBC 9.48 RBC 4.22 Hgb 13.4 Hct 40.4 MCV 95.7 MCH 31.8 MCHC 33.2 RDW Std Deviation 50.2 H RDW Coeff of Parviz 14.2 Plt Count 185 MPV 10.5 H Immature Gran % (Auto) 0.2 Neut % (Auto) 63.3 Lymph % (Auto) 20.3 Kendall % (Auto) 11.0 Eos % (Auto) 4.9 Baso % (Auto) 0.3 Neut # (Auto) 6.01 Lymph # (Auto) 1.92 Kendall # (Auto) 1.04 H Eos # (Auto) 0.46 Baso # (Auto) 0.03 Immature Gran # (Auto) 0.02 PT 10.5 INR 1.0 APTT 24.5 PTT Ratio 0.9 Sodium 136 Potassium 4.0 Chloride 102 Carbon Dioxide 29 Anion Gap 6.0 BUN 23 H Creatinine 1.09 Est Cr Clr Drug Dosing 54.7 Est GFR ( Amer) 60.8 Est GFR (Non-Af Amer) 52.5 BUN/Creatinine Ratio 21.2 H Glucose 103 H Estimat Average Glucose Hemoglobin A1c Calcium 9.2 Magnesium 2.0 Total Bilirubin 0.4 AST 35 ALT 24 Alkaline Phosphatase 79 Troponin I < 0.015 Total Protein 8.3 H Albumin 3.2 L Globulin 5.1 H Albumin/Globulin Ratio 0.6 L Triglycerides Cholesterol LDL Cholesterol, Calc VLDL Cholesterol, Calc HDL Cholesterol Cholesterol/HDL Ratio Urine Color Urine Appearance Urine pH Ur Specific [place] Urine Protein Urine Glucose (UA) Urine Ketones Urine Blood Urine Nitrite Urine Bilirubin Urine Urobilinogen Ur Leukocyte Esterase Urine WBC (Auto) Urine RBC (Auto) U Hyaline Cast (Auto) U Epithel Cells (Auto) Urine Bacteria (Auto) Valproic Acid COVID-19 Eval Order Hepatitis C Ab Screen SARS-CoV-2, RNA, NAAT 10/26/20 10/26/20 10/26/20 16:57 16:57 17:37 WBC RBC Hgb Hct MCV MCH MCHC RDW Std Deviation RDW Coeff of Parviz Plt Count MPV Immature Gran % (Auto) Neut % (Auto) Lymph % (Auto) [place] % (Auto) Eos % (Auto) Baso % (Auto) Neut # (Auto) Lymph # (Auto) Kendall # (Auto) Eos # (Auto) Baso # (Auto) Immature Gran # (Auto) PT INR APTT PTT Ratio Sodium Potassium Chloride Carbon Dioxide Anion Gap BUN Creatinine Est Cr Clr Drug Dosing Est GFR ( Amer) Est GFR (Non-Af Amer) BUN/Creatinine Ratio Glucose Estimat Average Glucose Hemoglobin A1c Calcium Magnesium Total Bilirubin AST ALT Alkaline Phosphatase Troponin I Total Protein Albumin Globulin Albumin/Globulin Ratio Triglycerides Cholesterol LDL Cholesterol, Calc VLDL Cholesterol, Calc HDL Cholesterol Cholesterol/HDL Ratio Urine Color Urine Appearance Urine pH Ur Specific [place] Urine Protein Urine Glucose (UA) Urine Ketones Urine Blood Urine Nitrite Urine Bilirubin Urine Urobilinogen Ur Leukocyte Esterase Urine WBC (Auto) Urine RBC (Auto) U Hyaline Cast (Auto) U Epithel Cells (Auto) Urine Bacteria (Auto) Valproic Acid 81 COVID-19 Eval [facility] [place] C Ab Screen Pos A SARS-CoV-2, RNA, NAAT 10/26/20 10/27/20 10/27/20 17:37 06:49 08:06 WBC 7.08 RBC 4.55 Hgb 14.4 Hct 44.1 MCV 96.9 MCH 31.6 MCHC 32.7 RDW Std Deviation 50.8 H RDW Coeff of Parviz 14.2 Plt Count 146 MPV 10.5 H Immature Gran % (Auto) 0.1 Neut % (Auto) 48.5 Lymph % (Auto) 28.7 Kendall % (Auto) 14.0 Eos % (Auto) 8.1 Baso % (Auto) 0.6 Neut # (Auto) 3.44 Lymph # (Auto) 2.03 Kendall # (Auto) 0.99 H Eos # (Auto) 0.57 H Baso # (Auto) 0.04 Immature Gran # (Auto) 0.01 PT INR APTT PTT Ratio Sodium 140 Potassium 4.1 Chloride 105 Carbon Dioxide 29 Anion Gap 6.0 BUN 17 Creatinine 0.91 Est Cr Clr Drug Dosing 65.5 Est GFR ( Amer) 75.7 Est GFR (Non-Af Amer) 65.3 BUN/Creatinine Ratio 19.1 Glucose 76 Estimat Average Glucose Hemoglobin A1c Calcium 9.6 Magnesium Total Bilirubin AST ALT Alkaline Phosphatase Troponin I Total Protein Albumin Globulin Albumin/Globulin Ratio Triglycerides 155 H Cholesterol 120 LDL Cholesterol, Calc 55 VLDL Cholesterol, Calc 31 HDL Cholesterol 34 Cholesterol/HDL Ratio 4 Urine Color Urine Appearance Urine pH Ur Specific [place] Urine Protein Urine Glucose (UA) Urine Ketones Urine Blood Urine Nitrite Urine Bilirubin Urine Urobilinogen Ur Leukocyte Esterase Urine WBC (Auto) Urine RBC (Auto) U Hyaline Cast (Auto) U Epithel Cells (Auto) Urine Bacteria (Auto) Valproic Acid COVID-19 Eval Order Hepatitis C Ab Screen SARS-CoV-2, RNA, NAAT NEGATIVE 10/27/20 10/27/20 08:06 12:30 WBC RBC Hgb Hct MCV MCH MCHC RDW Std Deviation RDW Coeff of Parviz Plt Count MPV Immature Gran % (Auto) Neut % (Auto) Lymph % (Auto) Kend[place] % (Auto) Eos % (Auto) Baso % (Auto) Neut # (Auto) Lymph # (Auto) [place] # (Auto) Eos # (Auto) Baso # (Auto) Immature Gran # (Auto) PT INR APTT PTT Ratio Sodium Potassium Chloride Carbon Dioxide Anion Gap BUN Creatinine Est Cr Clr Drug Dosing Est GFR ( Amer) Est GFR (Non-Af Amer) BUN/Creatinine Ratio Glucose Estimat Average Glucose 105 Hemoglobin A1c 5.3 Calcium Magnesium Total Bilirubin AST ALT Alkaline Phosphatase Troponin I Total Protein Albumin Globulin Albumin/Globulin Ratio Triglycerides Cholesterol LDL Cholesterol, Calc VLDL Cholesterol, Calc HDL Cholesterol Cholesterol/HDL Ratio Urine Color Yellow Urine Appearance Clear Urine pH 5.5 Ur Specific [place] 1.022 Urine Protein Negative Urine Glucose (UA) Negative Urine Ketones Negative Urine Blood Negative Urine Nitrite Positive A Urine Bilirubin Negative Urine Urobilinogen Negative Ur Leukocyte Esterase 1+ H Urine WBC (Auto) 1-5 Urine RBC (Auto) 5-10 H U Hyaline Cast (Auto) 0 U Epithel Cells (Auto) 10-20 H Urine Bacteria (Auto) 4+ H Valproic Acid COVID-19 Eval Order Hepatitis C Ab Screen SARS-CoV-2, RNA, NAAT
--- NOTE | 2020-10-27 13:31 | Consultation ---
Date of Consultation October 27, 2020 Assessment & Plan (1) Right-sided extracranial carotid artery stenosis: CTA showed a severe stenosis of the right internal carotid starting at its origin. The internal carotid artery beyond is very small in its entire course. This most likely is a chronic change. 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 No follow up for this lesion is needed. Thank you very much for letting us participate in the care of this patient. History of Present Illness Reason for Consultation: Right internal carotid artery stenosis Attending Physician: Franca Resendiz MD History of Present Illness This is a 65 yo female who suffered a CVA in January of last year. She had residual left leg weakness and paralysis of left arm. She does not recall if any mention was made of carotid disease at that time. She came to the ED yesterday with a feeling of increase weakness of left leg. There was also mention of a possible left facial droop. She claims to be baseline today. Allergies Allergy/AdvReac Type Severity Reaction Status Date / Time No Known Allergies Allergy Unverified 10/26/20 18:14 Home Medications Medication Instructions Recorded Confirmed Type albuterol sulfate [Ventolin HFA] 2 puff INHALATION 6XD PRN 10/26/20 10/26/20 History aspirin [Aspir-Low] 81 mg PO DAILY 10/26/20 10/26/20 History atorvastatin 40 mg PO QPM 10/26/20 10/26/20 History divalproex [Depakote] 1,000 mg PO .10PM 10/26/20 10/26/20 History duloxetine 30 mg PO .9PM 10/26/20 10/26/20 History famotidine 20 mg PO .9AM 10/26/20 10/26/20 History gabapentin 300 mg PO TID 10/26/20 10/26/20 History lisinopril-hydrochlorothiazide 1 tab PO QAM 10/26/20 10/26/20 History nystatin [Nyamyc] 1 applic TOPICAL TID 10/26/20 10/26/20 History omeprazole 40 mg PO QAM 10/26/20 10/26/20 History ondansetron HCl 4 mg PO Q8H PRN 10/26/20 10/26/20 History Patient History Social History Smoking Status: Unknown if ever smoked Hx Alcohol Use: No Hx Substance Use: No Beliefs That Will Affect Care: None Current Living Situation: Family Other Information That Helps Us Care for You: No Feels Safe at Home: Yes Safety Concerns: Feels Safe At This Time Assistive Devices: None Physical Exam Constitutional: well developed and well nourished; no acute distress Respiratory: normal respiratory effort; no respiratory distress Neurologic: Speech / Cognition: + abnormal speech left upper arm paralysis and left leg weakness Psychiatric: Orientation: alert and oriented x 3 Patient with PT, OT and speech therapy at this time Results [facility] ([facility]) Vital Signs (Past 12 Hours) Vital Signs Temp Pulse Pulse Resp BP Pulse Ox 10/27/20 11:30 36.8 C 55 L 18 93/47 L 96 10/27/20 08:00 55 L 10/27/20 07:38 36.2 C L 64 16 114/83 97 10/27/20 03:52 36.6 C 66 18 105/61 97 10/27/20 02:32 36.4 C L 60 15 99/62 L 96 10/27/20 02:07 63
--- NOTE | 2020-10-27 16:31 | Neurology Consultation ---
Date of Consultation October 27, 2020 Assessment & Plan (1) Stroke-like symptoms: 1. MRI brain no new stroke 2. CTA head and neck - right ICA occlusion- vascular surgery consulted no intervention planned 3. continue aspirin 81 mg 4. would liberalize blood pressure 110-120 systolic to improve circulation 5. fall precautions 6. PT OT for any additional home needs 7. optimize HLD LDL <70 8. follow up with PCP - no neuro follow up needed. will be available for questions concerns- will sign off for now. Present on Admission?: Yes (2) Right-sided extracranial carotid artery stenosis: 1. vascular surgery consulted Present on Admission?: Yes (3) Acute left-sided weakness: 1. right MCA stroke history continue aspirin 81 mg as ordered. Present on Admission?: Yes Supervising Physician Co-Signing Physician Notes I have seen and discussed above patient with Dr Dylon Castellon, neurology I have interviewed and examined this unfortunate woman in the presence of her daughter and Daiana Trujillo PA-C, have reviewed the above note, imaging studies, the vascular surgery consult note at this point suspect that her transient left-sided weakness was probably mediated through either an embolic shower the left nothing and is awake from the high-grade long segment stenosis of the right internal carotid artery or more likely perhaps some hypoperfusion related to some hypotension in the system is going to be very sensitive to fluctuations of blood pressure due to collateral flow failure in the right hemisphere It appears she may have a urinary tract infection although the culture is still pending but this may have played a role as well Nothing about the history suggests a seizure and she is on a number of agents that are going to serve as anticonvulsants including her Depakote and the increased gabapentin We see nothing on the MRI to suggest a new infarction and the clinical exam is certainly consistent with a 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 My suggestion would be to monitor the blood pressure at home trying to keep it in a mid range and avoid hypotension and I would suggest a target of 120s to 130s systolic and perhaps 70-80 diastolic. She may no longer need the lisinopril/hydrochlorothiazide which sure was started as part of a post stroke algorithm along with a atorvastatin etc. Her primary care physician will have to be monitoring this at home She is not felt to be vascular surgery candidate which I totally agree with Neurology is going to sign off the case and we really do not need to see her on a regular basis as there has been no evidence for new stroke and we are recommending no significant changes in either her anticoagulation program or her "anticonvulsants" which are really on board for behavioral control and for neuropathic pain Dylon Castellon MD History of Present Illness Reason for Consultation: stroke like symptoms Requesting Physician: Franca Resendiz MD Attending Physician: Franca Resendiz MD Allergies Allergy/AdvReac Type Severity Reaction Status Date / Time No Known Allergies Allergy Unverified 10/26/20 18:14 Home Medications Medication Instructions Recorded Confirmed Type albuterol sulfate [Ventolin HFA] 2 puff INHALATION 6XD PRN 10/26/20 10/26/20 History aspirin [Aspir-Low] 81 mg PO DAILY 10/26/20 10/26/20 History atorvastatin 40 mg PO QPM 10/26/20 10/26/20 History divalproex [Depakote] 1,000 mg PO .10PM 10/26/20 10/26/20 History duloxetine 30 mg PO .9PM 10/26/20 10/26/20 History famotidine 20 mg PO .9AM 10/26/20 10/26/20 History gabapentin 300 mg PO TID 10/26/20 10/26/20 History lisinopril-hydrochlorothiazide 1 tab PO QAM 10/26/20 10/26/20 History nystatin [Nyamyc] 1 applic TOPICAL TID 10/26/20 10/26/20 History omeprazole 40 mg PO QAM 10/26/20 10/26/20 History ondansetron HCl 4 mg PO Q8H PRN 10/26/20 10/26/20 History Patient History Social History Smoking Status: Unknown if ever smoked Hx Alcohol Use: No Hx Substance Use: No Communication Ability: Effective Beliefs That Will Affect Care: None Current Living Situation: Family Other Information That Helps Us Care for You: No Feels Safe at Home: Yes Safety Concerns: Feels Safe At This Time Assistive Devices: None Review of Systems Review of Systems: All systems reviewed & are unremarkable except as noted in HPI & below Physical Exam Physical Exam: Physical Exam: Constitutional: appearance over nourished, healthy Ears, Nose, Mouth and Throat: mucous membranes moist, no injection and skin normal, eyes normal Cardiovascular: normal S-1 and S-2 and regular rate and rhythm Respiratory: course breath sounds Musculoskeletal: mild peripheral edema and good distal pulses Skin: no stigmata of neurocutaneous disease noted and normal and intact Eyes: extraocular muscles intact (EOMI) and pupils equal, round and reactive to light (PERRL) NEUROLOGIC EXAMINATION: Mental status: Alert and interactive Oriented to person Speech fluent with no evidence of aphasia Cranial Nerves left flattening nasolabial fold Reflexes: Deep tendon reflexes were symmetrical and graded 2/5. down going toes Sensory: light and cool touch intact Coordination: unable to lift left arm or squeeze with left hand - neglect on left Gait/Stance: Posture lying in bed Motor: able to move right arm and leg Strength: deconditioned Results & Data ([facility]) Vital Signs (Past 12 Hours) Vital Signs Temp Pulse Pulse Resp BP Pulse Ox 10/27/20 16:04 36.5 C 73 13 146/81 H 90 10/27/20 11:30 36.8 C 55 L 18 93/47 L 96 10/27/20 08:00 55 L 10/27/20 07:38 36.2 C L 64 16 114/83 97 Laboratory Results Abnormal lab results 10/26/20 10/26/20 10/26/20 Range/Units 16:57 16:57 16:57 RDW Std Deviation 50.2 H (36.4-46.3) fL MPV 10.5 H (7.4-10.4) fL [place] # (Auto) 1.04 H (0.11-0.59) K/uL Eos # (Auto) (0-0.5) K/uL BUN 23 H (7-18) mg/dl BUN/Creatinine Ratio 21.2 H (10-20) Glucose 103 H (70-99) mg/dl Total Protein 8.3 H (6.4-8.2) gm/dl Albumin 3.2 L (3.4-5.0) gm/dl Globulin 5.1 H (2.5-4.0) gm/dl Albumin/Globulin Ratio 0.6 L (0.9-2) Triglycerides (0-150) mg/dl Urine Nitrite (Negative) Ur Leukocyte Esterase (Negative) Urine RBC (Auto) (0-4) /hpf U Epithel Cells (Auto) (0-5) /lpf Urine Bacteria (Auto) (Negative) Hepatitis C Ab Screen Pos A (Neg) 10/27/20 10/27/20 10/27/20 Range/Units 06:49 08:06 12:30 RDW Std Deviation 50.8 H (36.4-46.3) fL MPV 10.5 H (7.4-10.4) fL [place] # (Auto) 0.99 H (0.11-0.59) K/uL Eos # (Auto) 0.57 H (0-0.5) K/uL BUN (7-18) mg/dl BUN/Creatinine Ratio (10-20) Glucose (70-99) mg/dl Total Protein (6.4-8.2) gm/dl Albumin (3.4-5.0) gm/dl Globulin (2.5-4.0) gm/dl Albumin/Globulin Ratio (0.9-2) Triglycerides 155 H (0-150) mg/dl Urine Nitrite Positive A (Negative) Ur Leukocyte Esterase 1+ H (Negative) Urine RBC (Auto) 5-10 H (0-4) /hpf U Epithel Cells (Auto) 10-20 H (0-5) /lpf Urine Bacteria (Auto) 4+ H (Negative) Hepatitis C Ab Screen (Neg) Diagnostic Findings MRI brain-No acute intracranial findings. Old right middle cerebral artery territory infarcts. CTA head/neck- There is no hemorrhage, mass effect, or evidence of acute territorial ischemia by CT criteria. Encephalomalacia throughout the right MCA territory is consistent with a remote infarct. There is a 1.3 cm segment of near-complete occlusion at the origin of the right internal carotid artery with only trace flow. The mid to distal right internal carotid artery in the neck as well as the right internal carotid artery at the skull base is diminutive/attenuated but patent. This is likely chronic. The left internal carotid artery and the vertebral arteries are patent. The intracranial vessels are patent. The right MCA is slightly diminished in caliber as compared to left. Emphysema.
--- NOTE | 2020-10-27 19:48 | Hospitalist Progress Note ---
Date of Service October 27, 2020 Assessment & Plan Admission and Anticipated Discharge Date Admission Date: October 26, 2020 Subjective Started on Rocephin for UTI. Will follow cultures. Thanks Results & Data Results & Data ([facility]) Vital Signs (Past 12 Hours) Vital Signs Temp Pulse Pulse Resp BP Pulse Ox 10/27/20 19:18 36.8 C 59 L 19 137/89 91 10/27/20 16:04 36.5 C 73 13 146/81 H 90 10/27/20 16:00 67 10/27/20 11:30 36.8 C 55 L 18 93/47 L 96 10/27/20 08:00 55 L
[2020-10-27] MEDS: ATORVASTATIN 40 MG TAB PO SCH (20:28)
[2020-10-27] MEDS: DIVALPROEX DELAY RELEASE 500 MG TAB PO SCH (20:29)
[2020-10-27] MEDS: GABAPENTIN 100 MG CAP PO SCH (20:30)
[2020-10-27] MEDS: cefTRIAXone SODIUM 2,000 MG in DEXTROSE 5% 50 ML IV SCH (20:35)
[2020-10-28] MEDS: SODIUM CHLORIDE 0.9% 1000ML 1,000 ML IV SCH ×2 (00:08→11:30)
--- NOTE | 2020-10-28 05:23 | Electrocardiogram Report ---
Test Reason : Blood Pressure : / mmHG Vent. Rate : 069 BPM Atrial Rate : 069 BPM P-R Int : 174 ms QRS Dur : 076 ms QT Int : 390 ms P-R-T Axes : 009 -03 052 degrees QTc Int : 417 ms Normal sinus rhythm Normal ECG No previous ECGs available Confirmed by Eduardo Hunter ([id number]) on 10/28/2020 5:23:19 AM Referred By: REFERRED SELF Confirmed By:Eduardo Hunter
[2020-10-28 07:02] LABS: Basophils # (auto) 0.02 K/uL (0-0.2); Basophils % (auto) 0.3 %; Eosinophils # (auto) 0.49 K/uL (0-0.5); Hematocrit (blood only) 41.2 % (37-47); Hemoglobin 13.9 g/dL (12.0-16.0); Immature Granulocytes # (auto) 0.01 K/uL (0.00-0.02); Immature Granulocytes % (auto) 0.1 %; Lymphocytes # (auto) 1.71 K/uL (1.2-3.4); Lymphocytes % (auto) 24.4 %; Mean Corpuscular Hgb Conc 33.7 g/dL (32-36); Mean Corpuscular Volume 94.7 fL (80-100); Mean Platelet Volume 10.1 fL (7.4-10.4); Monocytes # (auto) 0.82 K/uL (0.11-0.59); Monocytes % (auto) 11.7 %; Neutrophils # (auto) 3.95 K/uL (1.4-6.5); Neutrophils % (auto) 56.5 %; Platelet Count 172 K/uL (130-400); RDW Coefficient of Variation 14.1 % (11.5-14.5); RDW Standard Deviation 49.3 fL (36.4-46.3); Red Blood Count 4.35 M/uL (4.2-5.4)
[2020-10-28 07:35] LABS: BUN Creatinine Ratio 14.7 (10-20); Est GFR (African American) 87.1; Est GFR (Non-African American) 75.2; Phosphorus 2.8 mg/dl (2.5-4.9); Potassium 3.8 mmol/L (3.5-5.1)
[2020-10-28] MEDS: PANTOprazole 40 MG TAB PO SCH (07:57)
[2020-10-28] MEDS: CLOPIDOGREL BISULFATE 75 MG TAB PO SCH (07:57)
[2020-10-28] MEDS: ASPIRIN 81 MG ECTAB PO SCH (07:57)
[2020-10-28] MEDS: DULoxetine HCL 30 MG CAP PO SCH (07:57)
[2020-10-28] MEDS: NYSTATIN POWDER 15GM BTL EXT SCH ×3 (07:57→21:05)
[2020-10-28] MEDS: ENOXAPARIN INJ 40 MG/0.4 ML SYR SQ SCH (07:58)
[2020-10-28] MEDS: FAMOTIDINE 20 MG TAB PO SCH (07:58)
[2020-10-28] MEDS: GABAPENTIN 100 MG CAP PO SCH ×3 (07:58→21:06)
--- NOTE | 2020-10-28 09:46 | Hospitalist Progress Note ---
Date of Service October 28, 2020 Assessment & Plan (1) Stroke-like symptoms: Patient reports she had dysuria for some days prior to presentation Weakness may be related to worsening of baseline deficits in the setting of possible UTI Discussed with patient's daughter on 10/27/20 She reported that patient noted to have increased left-sided weakness with worsening left facial droop arcelia night. CT head show encephalomalacia consistent with old stroke and no acute abnormalities MRI brain did not show any acute infarct CT angio head and neck does show near occlusion of the right ICA. This is likely chronic. Vascular surgeons evaluation appreciated. No intervention needed Continue aspirin and atorvastatin for now Neurologist recommendations appreciated Daughter also reports that patient has been more forgetful Patient has had increased drowsiness since starting Cymbalta and gabapentin increased after last PCP visit on 10/05/2020. This was confirmed on epic review. Continue Cymbalta for now and gabapentin reduced to previous dose of 100 mg 3 times daily Daughter also reported some choking episodes in the past to solid foods. Speech evaluation done and minced and moist diet recommended. Possible UTI Reported initial dysuria some days ago, now resolved Continue ceft for now and follow up urine culture (2) Hypertension: BP is going up now. Patient was on lisinopril -HCTZ 20-25 at home Will resume lisinopril only at 10mg and monitor BP (3) GERD (gastroesophageal reflux disease): Continue omeprazole (4) History of depression: (5) Migraines: Continue Depakote and duloxetine. (6) [facility] patient and daughter will like rehab placement Admission and Anticipated Discharge Date Admission Date: October 26, 2020 Subjective Patient seen and examined Patient is awake. Denies any new complaints. Reports feeling better and asking about discharge Reports she had dysuria for the past week which has currently resolved. Denied frequency, urgency, incontinence Denies any fevers, chills, nausea vomiting Acknowledges that she has been sleeping more recently. Reports that she did have increased weakness on the left side and the day prior to presentation but states that she is back to her usual state Physical Exam Constitutional: + well hydrated and + obese; no acute distress Eyes: PERRL, conjunctivae normal, anicteric sclerae ENMT: external ear and nose normal, oropharynx normal Respiratory: normal respiratory effort, lungs clear to auscultation Cardiovascular: Rate/Rhythm: regular rate and regular rhythm Heart Sounds: normal S1 and normal S2 Gastrointestinal (Abdomen): normal bowel sounds, soft, nontender, no hepatos plenomegaly Musculoskeletal: No pedal edema Neurologic: PEERL, EOMI, no dysarthria Psychiatric: Alert and oriented to person, 'knows she is in the hospital but not which', remember month and year. Limited insight Results & Data Results & Data ([facility]) Vital Signs (Past 12 Hours) Vital Signs Temp Pulse Pulse Resp BP Pulse Ox 10/28/20 08:00 59 L 10/28/20 07:56 36.5 C 56 L 18 164/99 H 99 10/28/20 04:46 58 L 10/28/20 02:49 36.6 C 66 18 127/78 96 10/27/20 22:58 36.8 C 72 19 119/87 90 Laboratory Results Laboratory Results - last 24 hr 10/27/20 10/28/20 10/28/20 12:30 06:41 06:41 WBC 7.00 RBC 4.35 Hgb 13.9 Hct 41.2 MCV 94.7 MCH 32.0 MCHC 33.7 RDW Std Deviation 49.3 H RDW Coeff of Parviz 14.1 Plt Count 172 MPV 10.1 Immature Gran % (Auto) 0.1 Neut % (Auto) 56.5 Lymph % (Auto) 24.4 [place] % (Auto) 11.7 Eos % (Auto) 7.0 Baso % (Auto) 0.3 Neut # (Auto) 3.95 Lymph # (Auto) 1.71 [place] # (Auto) 0.82 H Eos # (Auto) 0.49 Baso # (Auto) 0.02 Immature Gran # (Auto) 0.01 Sodium 141 Potassium 3.8 Chloride 107 Carbon Dioxide 28 Anion Gap 6.0 BUN 12 Creatinine 0.81 Est Cr Clr Drug Dosing 73.0 Est GFR ( Amer) 87.1 Est GFR (Non-Af Amer) 75.2 BUN/Creatinine Ratio 14.7 Glucose 88 Calcium 9.0 Phosphorus 2.8 Magnesium 2.0 Urine Color Yellow Urine Appearance Clear Urine pH 5.5 Ur Specific [place] 1.022 Urine Protein Negative Urine Glucose (UA) Negative Urine Ketones Negative Urine Blood Negative Urine Nitrite Positive A Urine Bilirubin Negative Urine Urobilinogen Negative Ur Leukocyte Esterase 1+ H Urine WBC (Auto) 1-5 Urine RBC (Auto) 5-10 H U Hyaline Cast (Auto) 0 U Epithel Cells (Auto) 10-20 H Urine Bacteria (Auto) 4+ H
[2020-10-28] MEDS ORDERED: lisinopril 10 MG TAB PO ONE (12:16)
[2020-10-28] MEDS: DIVALPROEX DELAY RELEASE 500 MG TAB PO SCH (21:05)
[2020-10-28] MEDS: ATORVASTATIN 40 MG TAB PO SCH (21:06)
[2020-10-28] MEDS: LIDOCAINE 5% 1 PATCH TD SCH (21:06)
[2020-10-28] MEDS: cefTRIAXone SODIUM 2,000 MG in DEXTROSE 5% 50 ML IV SCH (21:11)
[2020-10-29 06:14] LABS: Basophils # (auto) 0.02 K/uL (0-0.2); Basophils % (auto) 0.3 %; Eosinophils # (auto) 0.38 K/uL (0-0.5); Eosinophils % (auto) 5.7 %; Hematocrit (blood only) 38.1 % (37-47); Hemoglobin 13.1 g/dL (12.0-16.0); Immature Granulocytes # (auto) 0.01 K/uL (0.00-0.02); Immature Granulocytes % (auto) 0.1 %; Lymphocytes # (auto) 1.88 K/uL (1.2-3.4); Lymphocytes % (auto) 28.1 %; Mean Corpuscular Hemoglobin 32.1 pg (25-34); Mean Corpuscular Hgb Conc 34.4 g/dL (32-36); Mean Corpuscular Volume 93.4 fL (80-100); Mean Platelet Volume 10.4 fL (7.4-10.4); Monocytes # (auto) 0.76 K/uL (0.11-0.59); Monocytes % (auto) 11.3 %; Neutrophils # (auto) 3.65 K/uL (1.4-6.5); Neutrophils % (auto) 54.5 %; Platelet Count 167 K/uL (130-400); RDW Standard Deviation 47.8 fL (36.4-46.3); Red Blood Count 4.08 M/uL (4.2-5.4)
[2020-10-29 06:33] LABS: BUN Creatinine Ratio 9.1 (10-20); Calcium 9.1 mg/dl (8.5-10.1); Creatinine Clr Calc Pharmacy 76.8 ml/min; Est GFR (African American) 92.6; Est GFR (Non-African American) 79.9; Potassium 3.7 mmol/L (3.5-5.1)
[2020-10-29] MEDS: ENOXAPARIN INJ 40 MG/0.4 ML SYR SQ SCH (07:49)
[2020-10-29] MEDS: DULoxetine HCL 30 MG CAP PO SCH (07:49)
[2020-10-29] MEDS: PANTOprazole 40 MG TAB PO SCH (07:49)
[2020-10-29] MEDS: GABAPENTIN 100 MG CAP PO SCH ×3 (07:49→21:49)
[2020-10-29] MEDS: levoFLOXacin/D5W 750 MG/150 ML BAG IV SCH (07:50)
[2020-10-29] MEDS: ASPIRIN 81 MG ECTAB PO SCH (07:50)
[2020-10-29] MEDS: FAMOTIDINE 20 MG TAB PO SCH (07:50)
[2020-10-29] MEDS: NYSTATIN POWDER 15GM BTL EXT SCH ×3 (07:50→21:49)
--- NOTE | 2020-10-29 08:45 | Hospitalist Progress Note ---
Date of Service October 29, 2020 Assessment & Plan (1) Stroke-like symptoms: Patient reports she had dysuria for some days prior to presentation Weakness may be related to worsening of baseline deficits in the setting of UTI Discussed with patient's daughter on 10/27/20 She reported that patient noted to have increased left-sided weakness with worsening left facial droop arcelia night. CT head show encephalomalacia consistent with old stroke and no acute abnormalities MRI brain did not show any acute infarct CT angio head and neck does show near occlusion of the right ICA. This is likely chronic. Vascular surgeons evaluation appreciated. No intervention needed Continue aspirin and atorvastatin for now Neurologist recommendations appreciated Daughter also reported that patient has been more forgetful Patient has had increased drowsiness since starting Cymbalta and gabapentin inc reased after last PCP visit on 10/05/2020. This was confirmed on [facility] review. Continue Cymbalta for now and gabapentin was reduced to previous dose of 100 mg 3 times daily Daughter also reported some choking episodes in the past to solid foods. Speech evaluation done and minced and moist diet recommended. (2) UTI due to extended-spectrum beta lactamase (ESBL) producing Escherichia c belkis: Reported initial dysuria some days ago, now resolved Urine culture growing ESBL E.coli Ceftriaxone discontinued and started on levofloxacin based on sensitivities (3) Hypertension: BP is going up now. Patient was on lisinopril -HCTZ 20-25 at home Lisinopril was resumed at 10mg yesterday. Increase to 20mg today Monitor BP (4) GERD (gastroesophageal reflux disease): Continue omeprazole (5) History of depression: (6) Migraines: Continue Depakote and duloxetine. (7) DVT prophylaxis: Lovenox subcute working on rehab as patient and daughter will like rehab placement HCV Ab was positive HCV RNA pending Admission and Anticipated Discharge Date Admission Date: October 26, 2020 Subjective Patient seen and examined. Denied any dizziness, headache Denied any dysphagia or odynophagia Denied chest pain/SOB/Cough Denied abd pain,nausea, vomiting, diarrhea Reports dysuria is resolved. Physical Exam Constitutional: + well hydrated and + obese; no acute distress Eyes: PERRL, conjunctivae normal, anicteric sclerae ENMT: external ear and nose normal, oropharynx normal Respiratory: normal respiratory effort, lungs clear to auscultation Cardiovascular: Rate/Rhythm: regular rate and regular rhythm Heart Sounds: normal S1 and normal S2 Gastrointestinal (Abdomen): normal bowel sounds, soft, nontender, no hepatosplenomegaly Musculoskeletal: No pedal edema Neurologic: PERRL, EOMI, accommodation nl, no face palsy, no dysarthria Power is 0/5 in LUE and 1/5 in LLE Psychiatric: Alert, oriented to person, knows she is in the hospital but thinks its a hospital in [place], oriented to month and year Results & Data Results & Data ([facility]) Vital Signs (Past 12 Hours) Vital Signs Temp Pulse Resp BP Pulse Ox 10/29/20 07:41 37.2 C 69 16 151/86 H 90 10/29/20 04:10 36.6 C 66 13 128/81 93 10/28/20 23:30 36.5 C 66 14 142/90 H 93 Laboratory Results Laboratory Results - last 24 hr 10/28/20 10/29/20 10/29/20 16:19 05:33 05:33 WBC 6.70 RBC 4.08 L Hgb 13.1 Hct 38.1 MCV 93.4 MCH 32.1 MCHC 34.4 RDW Std Deviation 47.8 H RDW Coeff of Parviz 14.0 Plt Count 167 MPV 10.4 Immature Gran % (Auto) 0.1 Neut % (Auto) 54.5 Lymph % (Auto) 28.1 [place] % (Auto) 11.3 Eos % (Auto) 5.7 Baso % (Auto) 0.3 Neut # (Auto) 3.65 Lymph # (Auto) 1.88 [place] # (Auto) 0.76 H Eos # (Auto) 0.38 Baso # (Auto) 0.02 Immature Gran # (Auto) 0.01 Sodium 139 Potassium 3.7 Chloride 106 Carbon Dioxide 27 Anion Gap 6.0 BUN 7 D Creatinine 0.77 Est Cr Clr Drug Dosing 76.8 Est GFR ( Amer) 92.6 Est GFR (Non-Af Amer) 79.9 BUN/Creatinine Ratio 9.1 L Glucose 86 Calcium 9.1 HCV RNA (PCR) IUs/ml Pending HCV RNA PCR log IUs/ml Pending
[2020-10-29] MEDS ORDERED: lisinopril 10 MG TAB PO SCH (09:00)
[2020-10-29] MEDS ORDERED: lisinopril 10 MG TAB PO ONE (10:00)
[2020-10-29] MEDS: ACETAMINOPHEN 325 MG TAB PO PRN (19:44)
[2020-10-29] MEDS: DIVALPROEX DELAY RELEASE 500 MG TAB PO SCH (21:48)
[2020-10-29] MEDS: ATORVASTATIN 40 MG TAB PO SCH (21:48)
[2020-10-29] MEDS: LIDOCAINE 5% 1 PATCH TD SCH (21:49)
[2020-10-30 06:23] LABS: BUN Creatinine Ratio 10.3 (10-20); Calcium 8.4 mg/dl (8.5-10.1); Creatinine Clr Calc Pharmacy 78.9 ml/min; Est GFR (African American) 94.1; Est GFR (Non-African American) 81.2; Potassium 3.5 mmol/L (3.5-5.1)
[2020-10-30] MEDS: levoFLOXacin/D5W 750 MG/150 ML BAG IV SCH (08:53)
[2020-10-30] MEDS: ENOXAPARIN INJ 40 MG/0.4 ML SYR SQ SCH (08:54)
[2020-10-30] MEDS: FAMOTIDINE 20 MG TAB PO SCH (08:54)
[2020-10-30] MEDS: ASPIRIN 81 MG ECTAB PO SCH (08:54)
[2020-10-30] MEDS: DULoxetine HCL 30 MG CAP PO SCH (08:55)
[2020-10-30] MEDS: PANTOprazole 40 MG TAB PO SCH (08:55)
[2020-10-30] MEDS: GABAPENTIN 100 MG CAP PO SCH (08:55)
[2020-10-30] MEDS: NYSTATIN POWDER 15GM BTL EXT SCH (08:55)
[2020-10-30] MEDS ORDERED: lisinopril 20 MG TAB PO SCH (09:00)
[2020-10-30] MEDS: ACETAMINOPHEN 325 MG TAB PO PRN (10:16)
--- NOTE | 2020-10-30 11:32 | Discharge Summary ---
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 Currently moved close to stay with her daughter, daughter helps her. Was brought in because of stroke-like symptoms. Since yesterday night, the patient has felt a little bit more weakness in her left leg than usual and also some mild left-sided facial droop. As per daughter, she was also hallucinating last night. That is the reason she was brought in here. Imaging studies, Ct head and CTA of the head and neck were done in the ER, no acute findings seen. The patient is alert and oriented. Speech is clear. Questionable mild facial droop. Answering questions appropriately and obeys simple commands. Can move a little bit, her left lower extremity, but cannot move her left upper extremity, that is from previous stroke. As per daughter, last night she also was choking on the food. Generally, she eats okay. Has chronic migraine headaches has headache now about 8/10 in severity . Always has blurred visions. No fever, no chills. Has some nausea, no vomiting, no abdominal pain, no diarrhea or constipation. She also complains of burning micturition. No chest pain, no shortness of breath, no abdominal pain. Currently, hemodynamics are stable. Admission Exam Per Admitting Provider GENERAL: The patient is alert and oriented, not in acute distress. VITAL SIGNS: Temperature 36.8, pulse 63, respiratory rate 16, blood pressure 110/64, oxygen 96% on 2 L. HEENT: Pupils equal, round, and reactive to light. Oral mucosa moist. Tongue midline. No obvious facial droop seen. NECK: No JVD, no neck masses. CARDIOVASCULAR: S1, S2 heard. Regular rate and rhythm, no murmur, no gallop. RESPIRATORY SYSTEM: Normal AP diameter. No accessory muscle use. No wheezing, no crackles. ABDOMEN: Soft, bowel sounds present, nontender. No distention. CENTRAL NERVOUS SYSTEM: Alert and oriented. Obeys simple commands. Power 5/5 in right extremity, power 1/5 and left lower extremity and 0/5 in left upper extremity. Position sense intact. EXTREMITIES: No edema, no erythema. Principal Diagnosis ESBL E.coli UTI Discharge Exam Constitutional + well hydrated and + obese; no acute distress Eyes PERRL, conjunctivae normal, anicteric sclerae ENMT external ear and nose normal, oropharynx normal Respiratory normal respiratory effort, lungs clear to auscultation Cardiovascular Rate/Rhythm: regular rate and regular rhythm Heart Sounds: normal S1 and normal S2 Gastrointestinal (Abdomen) normal bowel sounds, soft, nontender, no hepatosplenomegaly Musculoskeletal No pedal edema Neurologic PERRL, EOMI, accommodation nl, no face palsy, no dysarthria Power is 0/5 in LUE and 1/5 in LLE Psychiatric Orientation: alert, oriented to person, oriented to place and cooperative Discharge Data Allergies Allergy/AdvReac Type Severity Reaction Status Date / Time No Known Allergies Allergy Unverified 10/26/20 18:14 Consultations 10/26/20 18:56 ED Decision to Admit Stat 10/26/20 21:16 Consult Case Management - Discharge Planning Routine Consult Case Management - Discharge Planning Routine 10/27/20 08:00 Consult Neurology Routine Consult Vascular Surgery Routine Ordered Studies 10/26/20 16:56 CT angio head w con Stat CT angio neck with con Stat CT head/brain wo con Stat Brain parenchyma: Encephalomalacia throughout the right MCA territory is consistent with a remote infarct. There is mild microangiopathic disease. There is no hemorrhage, mass effect, or evidence of acute territorial ischemia by CT criteria. There is no evidence of enhancing mass lesion on the angiogram phase images. Wallerian degeneration is noted in the right aspect of the gene. The ventricles, sulci, and cisterns are prominent secondary to involutional change. A chronic lacunar infarct is noted in the right aspect of the gene. Moreno-white matter differentiation is preserved. No extra-axial fluid collection is seen. Thoracic aorta: There is atherosclerotic calcification of the thoracic aorta. Visualized portions of the thoracic aorta are normal in caliber. The aortic arch demonstrates standard 3-vessel anatomy. Right carotid arterial system: The right common carotid artery is widely patent. There is high-grade stenosis at the origin of the right external carotid artery. The remainder of the right external carotid artery is widely patent. Advanced atherosclerotic plaque is seen in the right carotid bulb and throughout the right internal carotid artery. There is a long segment of high-grade stenosis with near-complete occlusion/trace flow seen at the origin of the right internal carotid artery. This extends 1.3 cm in length. The mid to distal right internal carotid artery is diminutive but patent. Left carotid arterial system: The left common carotid artery is widely patent, as are the left internal and external carotid arteries. Calcified plaque is noted in the carotid bulb. Vertebral arteries: The vertebral arteries are patent bilaterally noting left- sided dominance. Subclavian arteries: Widely patent bilaterally. Intracranial vasculature: There is advanced atherosclerotic calcification an irregularity of the cavernous carotid arteries. There is attenuated flow within the right internal carotid artery at the skull base. Vessel remains patent. The left internal carotid artery is widely patent at the skull base, as are the anterior cerebral arteries and the left middle cerebral artery. The right middle cerebral artery is patent, and slightly diminutive as compared to the left. The vertebrobasilar system and posterior cerebral arteries are widely patent. The left vertebral artery is dominant. There is no aneurysm or focal vessel cut off seen throughout the intracranial circulation. Jugular veins: Patent bilaterally. Dural sinuses: Patent. Lung apices: Emphysematous change is noted at the lung apices. Soft tissues: The visualized pharyngeal soft tissues are normal in appearance noting angiographic phase technique. The oropharyngeal airway appears widely patent. A 6 mm low-attenuation nodule is noted in the left lobe of the thyroid. The salivary glands are normal in appearance. No cervical lymphadenopathy is seen. Skeletal structures: The skeletal structures are osteopenic. The calvarium appears intact. The cervical spine is maintained noting mild multilevel spondylosis. No lytic or blastic lesion is seen. Orbits: The bony orbits are intact. Orbital contents are normal as visualized. Sinuses and mastoids: There is mild to moderate mucosal thickening within the right maxillary antrum. Trace mucosal thickening is seen in the left maxillary antrum. The remaining paranasal sinuses are clear. There are small mastoid effusions. IMPRESSION: 1. There is no hemorrhage, mass effect, or evidence of acute territorial ischemia by CT criteria. 2. Encephalomalacia throughout the right MCA territory is consistent with a remote infarct. 3. There is a 1.3 cm segment of near-complete occlusion at the origin of the right internal carotid artery with only trace flow. 4. The mid to distal right internal carotid artery in the neck as well as the right internal carotid artery at the skull base is diminutive/attenuated but patent. This is likely chronic. 5. The left internal carotid artery and the vertebral arteries are patent. 6. The intracranial vessels are patent. The right MCA is slightly diminished in caliber as compared to left. 7. Emphysema. 8. Additional findings as above. 10/27/20 00:03 MR brain wo con Urgent There are no foci of restricted diffusion to suggest acute infarct. No acute intracranial hemorrhage, midline shift or mass effect is present. Note is made of multifocal encephalomalacia within the right middle cerebral artery distribution consistent with old infarct. An adjacent T2 hyperintensity is noted. These findings are chronic. Associated wallerian degeneration and mild asymmetric dilatation of the right lateral ventricle is noted. Basal cisterns are patent. There are no extra-axial collections no intracranial masses identified on this unenhanced examination. No foci of susceptibility artifact are identified on the gradient echo sequence. Calvarial signal is normal. There is mild to moderate mucosal thickening of the right maxillary sinus. There is trace fluid within the bilateral mastoid air cells. IMPRESSION: 1. No acute intracranial findings. 2. Old right middle cerebral artery territory infarcts Hospital Course (1) Stroke-like symptoms: Patient reports she had dysuria for some days prior to presentation Weakness may be related to worsening of baseline deficits in the setting of UTI +/- medication effects Discussed with patient's daughter on 10/27/20 She reported that patient noted to have increased left-sided weakness with worsening left facial droop arcelia night. CT head show encephalomalacia consistent with old stroke and no acute abnormalities MRI brain did not show any acute infarct CT angio head and neck does show near occlusion of the right ICA. This is likely chronic. Vascular surgeons evaluated and no intervention needed Continue aspirin and atorvastatin for now Neurologist evaluated. Stroke ruled out Daughter also reported that patient has been more forgetful Patient has had increased drowsiness since starting Cymbalta and gabapentin increased after last PCP visit on 10/05/2020. Continue Cymbalta for now and gabapentin was reduced from 300mg TID to previous dose of 100 mg 3 times daily Daughter also reported some choking episodes in the past to solid foods. Speech evaluation done and minced and moist diet recommended. Patient symptoms resolved with UTI treatment and medication adjustments (2) UTI due to extended-spectrum beta lactamase (ESBL) producing Escherichia coli: Reported initial dysuria some days ago, now resolved Urine culture growing ESBL E.coli Was started on levofloxacin based on sensitivities Discharged on levofloxacin to continue treatment (3) Hypertension: Had some hypotensive episode during hospital stay Patient was on lisinopril -HCTZ 20-25 at home This was initially held Lisinopril only resumed. Discharged on lisinopril 20mg daily (4) GERD (gastroesophageal reflux disease): Continue omeprazole (5) History of depression: (6) Migraines: Continue Depakote and duloxetine. (7) HCV antibody positive: Patient's HCV ab was positive HCV RNA were sent but still pending on discharge PCP to follow up results to determine further management as needed Total Time Total Time Spent Total Time Spent (In Minutes): 45 Total Time Includes: Examination of the Patient, Discharge Planning and Medication Reconciliation Discharge Plan Discharge Items Patient Disposition: Transfer Inpatient Rehab Fac Reason For Visit: STROKE LIKE SYMPTOMS Discharge Diagnosis: ESBL Urinary tract infection Stroke like symptoms Activity: As commented below Activity Comment: Per Physical therapist instructions Non-emergency contact: Primary Care Provider Call non-emergency contact if: you have any medication questions and your symptoms worsen Follow-up/Referrals: Dahiana Zarco MD [Primary Care Provider] - (Date & Time 11/02/2020 9:00 AM Provider Aj Zarco MD Department Internal Medicine [facility] ) Diet: Heart Healthy Diet Comment: Minced and moist diet Addtl Attending Provider Instructions: Mrs. Corado You were brought to the hospital for increased weakness in the left leg and worsening of left facial droop. You were evaluated with CAT scan and MRI which did not show any acute stroke. You also reported some pain with urination prior to presentation. Evaluation showed that you have a urinary tract infection [with ESBL E. coli]. You were started on levofloxacin based on culture result. Please take the medication to complete treatment. Your daughter also reported that you have been increasingly drowsy and sleepy over the past few weeks. This may be due to recent change in your medications. Hence, your gabapentin was reduced back to 100 mg 3 times a day that you were on before. You also reported some choking episodes of solid food at home. You you were evaluated by speech therapist and change to minced and moist heart healthy diet Please take your [place] twice a day as needed and not 3 times a day. Your blood pressure medication was changed from lisinopril-hydrochlorothiazide to lisinopril only for now. Hepatitis C antibody screen done during hospital visit was positive. Hepatitis C RNA testing sent still pending. Please have your primary care doctor follow- up test results to determine subsequent management. You are being discharged to rehab. Please continue follow-up with your primary care doctor. It was a pleasure taking care of you Pending Studies at Discharge: Yes Stand-Alone Forms: My [facility] Skilled Items Patient informed of condition?: Yes DNR: No Discharge Level of Care: Acute rehab Communicable Disease: No Discharge Prognosis: Stable Lines: None Urinary Catheter: No Medications and DC Order Prescriptions: New lisinopril 20 mg Tablet 20 mg PO QAM Qty: 30 RF: 0 gabapentin 100 mg Capsule 100 mg PO TID Qty: 90 RF: 0 levofloxacin 750 mg tablet 750 mg PO DAILY 5 Days Qty: 5 RF: 0 Continued aspirin 81 mg Tablet,Delayed Release (Dr/Ec) 81 mg PO DAILY RF: 0 atorvastatin 40 mg tablet 40 mg PO QPM RF: 0 divalproex [Depakote] 500 mg tablet,delayed release (DR/EC) 1,000 mg PO .10PM RF: 0 duloxetine 30 mg capsule,delayed release(DR/EC) 30 mg PO .9PM RF: 0 famotidine 20 mg Tablet 20 mg PO .9AM RF: 0 nystatin [Nyamyc] 100,000 unit/gram Powder 1 applic TOPICAL TID RF: 0 ondansetron HCl 4 mg tablet 4 mg PO Q8H PRN (Reason: Nausea And Vomiting) RF: 0 omeprazole 40 mg capsule,delayed release(DR/EC) 40 mg PO QAM RF: 0 albuterol sulfate [Ventolin HFA] 90 mcg/actuation Hfa Aerosol Inhaler 2 puff INHALATION 6XD PRN (Reason: Shortness Of Breath Or Wheezing) RF: 0 hydrocodone-acetaminophen 5-325 mg tablet 1 BID RF: 0 Discontinued gabapentin 300 mg Capsule 300 mg PO TID RF: 0 lisinopril-hydrochlorothiazide 20-25 mg tablet 1 tab PO QAM RF: 0 Discharge Orders: Discharge Order (Routine); Ordered 10/30/20 Ordered By: Franca Resendiz Admission Data Admit Date/Time: 10/26/20 20:15 Attending Provider: Franca Resendiz I. Admit Provider: Theo Marcos Primary Care Provider: Dahiana Zarco Other Providers: Theo Marcos ; Daiana Trujillo ; Dylon Castellon ; Daiana Geronimo ; Luis Hartman ; Reynaldo Lewis ; [facility] Other Interventions: Discharge Summary Assessment (RN) Last Done: 10/30/20 11:38
[2020-11-01 11:00] LABS: Hepatitis C Vira RNA (Log) PCR 6.9 Log IU/mL (NOT DETECTED)
== END 2020-10-30 13:30 | DRG 690 ==
LOC: ED 16:46 → 2E 20:15